=== PATIENT | female | born 1985 | race Caucasian/White ===

== ENCOUNTER → 2025-01-29 | Day surgery (SDC) | payer MEDICAID ==
[~2025-01-29] VITALS: Ht 154.9 cm; Wt 75.7 kg
[~2025-01-29] MED LIST: ACETAMINOPHEN 1000MG/100ML 100 ML IV ONE; BUPIVACAINE HCL/PF 0.5% (5MG/ML) 10ML ONE; FENTANYL CITRATE/PF 50MCG/ML 2ML VIAL ONE; GLYCOPYRROLATE 0.2 MG/ML 2ML VIAL ONE; KETOROLAC 30MG/ML VIAL ONE; LACTATED RINGERS 1,000 ML IV SCH; METOCLOPRAMIDE HCL 10MG/2ML VIAL ONE; MIDAZOLAM HCL 2 MG/2 ML VIAL ONE; NEOSTIGMINE METHYLSULFATE 1MG/ML 10 ML VIAL ONE; ONDANSETRON HCL 4MG/2ML INJ IV PRN; ONDANSETRON HCL 4MG/2ML INJ ONE; PROPOFOL 200MG/20ML VIAL IV ONE; ROCURONIUM BROMIDE 10MG/ML VIAL 5ML IV ONE; SUCCINYLCHOLINE CHLORIDE 200MG/10ML IV ONE
[2025-01-29 07:57] LABS: UCG KIT EXPIRATION DATE 03/11/2027; UCG KIT LOT# 0000982192; UCG SCREEN NEGATIVE
[2025-01-29 11:11] VITALS: BP 104/62; PULSE 50; RESP 16
[2025-01-29] MEDS: HYDROMORPHONE HCL/PF 1MG/ML INJ IV PRN (11:11)
== END | disposition home or self-care (01) ==
LOC: OR 07:23
PROVIDERS: ATTEND Surgery
DX: D17.1 Benign lipomatous neoplasm of skin and subcutaneous tissue of trunk (principal); Z79.899 Other long term (current) drug therapy; Z98.890 Other specified postprocedural states
CPT/HCPCS: 21931; 81025; 88304; J1885; J3010; J0665; J3490 ×2; J2765; J2250; J2405; J2704; J0330; J1171; J2710; J0131